=== PATIENT | male | born 1990 | race Caucasian/White ===

== ENCOUNTER 2019-07-29 18:56 | Emergency (ER) | payer BC ==
[2019-07-29] MEDS ORDERED: Penicillin V Potassium 500 MG Tab PO STA (19:34)
[2019-07-29] MEDS ORDERED: Acetaminophen/HYDROcodone 325-5 MG Tab PO ONE (19:34)
--- NOTE | 2019-07-29 19:40 | EDM.PDOC ---
ED HPI GENERAL MEDICAL PROBLEM - General Chief Complaint: ENT Problem Stated Complaint: TOOTH PAIN Time Seen by Provider: 07/29/19 19:03 Source of Information: Reports: Patient History Limitations: Reports: No Limitations - History of Present Illness INITIAL COMMENTS - FREE TEXT/NARRATIVE: Mr. Boyle is a very pleasant 29-year-old man with a past medical history significant for allergic rhinitis, who now presents to the ED stating that he broke a lower left tooth about 10 years ago, and that there has always been some pain, but that the pain became much worse this past or 07/25 or 07/27/2019. He has not had any oral or facial swelling. No oral drainage. No recent fever. The patient states that he has never been to a dentist to address his broken tooth. Does not currently have a dental appointment, but plans to get one this week. Here in the ED, the patient's initial BP is found to be elevated at 149/101, otherwise, he is hemodynamically stable, afebrile, saturating 98% on room air. The patient denies recent fever, chills, sore throat, ear pain, nasal or sinus congestion, cough, dyspnea, chest pain, palpitations, nausea, vomiting, constipation, diarrhea, abdominal pain, urinary symptoms, recent weight gain or weight loss, recent bloody bowel movements or black bowel movements, recent joint aches, headaches, or rashes. The patient does not have a PCP. - Related Data Allergies Allergy/AdvReac Type Severity Reaction Status Date / Time No Known Allergies Allergy Verified 07/29/19 20:05 Home Meds: Home Meds Levocetirizine Dihydrochloride [Xyzal] 5 mg PO DAILY 07/29/19 [History] Penicillin V Potassium 1 tab PO Q6HR #40 tab 07/29/19 [Rx] Past Medical History HEENT History: Reports: Allergic Rhinitis - Past Surgical History GI Surgical History: Reports: Hernia, Inguinal (right) Social & Family History - Family History Family Medical History: Noncontributory - Tobacco Use Smoking Status *Q: Former Smoker Tobacco Use Within Last Twelve Months: Smokeless Tobacco (Chews 1/4 to 1/3 can/ day) Years of Tobacco use: 2 Packs/Tins Daily: 1 Month/Year Tobacco Last Used: Quit 2010 - Caffeine Use Caffeine Use: Reports: None - Alcohol Use Alcohol Use History: Yes Alcohol Use Frequency: Socially - Recreational Drug Use Recreational Drug Use: No - Living Situation & Occupation Living situation: Reports: Single, Alone 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 ED EXAM, ENT - Physical Exam Exam: See Below Exam Limited By: No Limitations General Appearance: Alert, WD/WN, No Apparent Distress Eye Exam: Bilateral Eye: EOMI, Normal Inspection Ears: Normal External Exam, Normal Canal, Hearing Grossly Normal, Normal TMs Nose: Normal Inspection, Normal Mucousa, No Blood Mouth/Throat: Normal Lips, Normal Oropharynx, Other (Teeth #1, 2 absent. Teeth #3, 4 with filling. Tooth #16 absent. Teeth #17, 18 (the teeth of concern) with extensive decay, serially on tooth #17, laterally on tooth #18, including decay around a filling of tooth #18. Tooth #29 with crown. Tooth #30 with filling. Tooth #31, 32 absent. No apparent swelling of gingiva around teeth # 17, 18, however, there is some increased erythema. No pointing noted.) Head: Atraumatic, Normocephalic Neck: Normal Inspection, Supple, Non-Tender, Full Range of Motion. No: Lymphadenopathy (L), Lymphadenopathy (R) Course - Vital Signs Last Recorded V/S: Last Vital Signs Temp 36.6 C 07/29/19 19:06 Pulse 98 07/29/19 19:06 Resp 16 07/29/19 19:06 BP 149/101 H 07/29/19 19:06 Pulse Ox 98 07/29/19 19:06 - Orders/Labs/Meds Meds: Medications Discontinued Medications Generic Name Dose Route Start Last Admin Trade Name Freq PRN Reason Stop Dose Admin Hydrocodone Bitart/Acetaminophen 2 tab 07/29/19 19:34 07/29/19 19:41 [place] 325-5 Mg PO 07/29/19 19:35 2 tab ONETIME ONE Administration Penicillin V Potassium 500 mg 07/29/19 19:34 07/29/19 19:41 Veetids PO 07/29/19 19:35 500 mg ONETIME STA Administration - Re-Assessments/Exams Free Text/Narrative Re-Assessment/Exam: 07/29/19 19:35 As above, teeth #17 and 18 are severely decayed, and there is some associated gingival erythema, although not much swelling, and no pointing is seen. An underlying infection is certainly possible, therefore I would like to start the patient on an antibiotic. The patient tells me that he was told by his mother that, as an infant, he had an allergic reaction to penicillin, although he does not recall what type of allergic reaction he may have had. 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 The patient is willing to try penicillin; our plan will be to give the patient dose of penicillin here in the ED, and have him wait for about 20 minutes. If he does not develop any sort of reaction, I will discharge him home with a prescription for penicillin. In addition, the patient will be given [place] here in the ED. Upon discharge, he will be given a list of local dentists. 07/29/19 20:05 It has been over 20 minutes since the patient was given the penicillin, and he has not developed any adverse reaction. I will discharge him home. Departure - Departure Time of Disposition: 20:06 Disposition: Home, Self-Care 01 Condition: Good Clinical Impression: Dentalgia, Dental infection - Discharge Information *PRESCRIPTION DRUG MONITORING PROGRAM REVIEWED*: Not Applicable *COPY OF PRESCRIPTION DRUG MONITORING REPORT IN PATIENT LEYLA: Not Applicable Prescriptions: Penicillin V Potassium 1 tab PO Q6HR #40 tab Referrals: PCP,None [Primary Care Provider] - Forms: ED Department Discharge Additional Instructions: You were seen in the emergency room for lower left dental pain. On examination, you have severe decay of teeth 17 and 18. Based on your history and physical examination, a dental infection is certainly possible. You have been started on the antibiotic penicillin, and a prescription for penicillin has been sent to the [facility], located at [address] [place] [address], in [place]. Take 1 tablet of penicillin every 6 hours, starting tomorrow morning, Tuesday, 07/30 2019, as prescribed. Finish the entire prescription unless told otherwise by a dentist. In addition to penicillin, we recommend that you take [id number] ibuprofen , 3 tablets (600 mg) every 8 hours, with food, as needed for discomfort. A list of local dentists has been provided to you. It is very important that you follow-up with a dentist within the next 10 days. If any other problems, please do not hesitate to return to the ER. Sepsis Event Note - Evaluation Sepsis Screening Result: No Definite Risk - Focused Exam Vital Signs: Vital Signs Temp Pulse Resp BP Pulse Ox 07/29/19 19:06 36.6 C 98 16 149/101 H 98 Date Exam was Performed: 07/29/19 Time Exam was Performed: 20:05
== END 2019-07-29 20:12 | disposition home or self-care (01) ==
LOC: JD.ED 18:56
DX: K04.7 Periapical abscess without sinus (principal); K02.9 Dental caries, unspecified; Z87.891 Personal history of nicotine dependence
CPT/HCPCS: 99282; A9270